=== PATIENT | female | born 1945 | race Caucasian/White ===

== ENCOUNTER 2017-01-06 12:32 | Observation (INO) | payer MEDICARE ==
[2017-01-06] MEDS ORDERED: Zofran 4 MG/2 ML VIAL IV ONE (12:38)
[2017-01-06] MEDS ORDERED: NITRO-BID 2% UD PACKETS TOP ONE (12:38)
[2017-01-06] MEDS ORDERED: BABY ASPIRIN 81 MG CHEW PO ONE (12:38)
[2017-01-06] MEDS ORDERED: Zofran 4 MG/2 ML VIAL ONE (12:39)
[2017-01-06] MEDS ORDERED: BABY ASPIRIN 81 MG CHEW ONE (12:40)
[2017-01-06] MEDS ORDERED: NITRO-BID 2% UD PACKETS ONE (12:40)
[2017-01-06] MEDS ORDERED: Sodium Chloride 0.9% 1000 ML 1,000 ML IV SCH (12:45)
--- NOTE | 2017-01-06 12:45 | ERPHSYRPT ---
- History of Present Illness Time Seen by Provider: 01/06/17 12:38 Historian: patient, family Exam Limitations: no limitations Physician History: chest discomfort and not feeling well fo r2-3 days; last night developed chest heaviness with N&V clear; diaphoresis and sob; pain 7/10; has persisted; no releif; no meds; no travel; no trauma; past hx of [place] years ago; no exposures; no fever Timing/Duration: yesterday (worse), day(s) (2-3 days onset), intermittent, worse Activities at Onset: activity Quality: fullness, pressure, tightness Location: substernal Chest Pain Radiation: no radiation Severity of Pain-Max: severe Severity of Pain-Current: severe Modifying Factors: Improves With: exertion (aggravates), rest (slight releif) Associated Symptoms: nausea, vomiting, shortness of breath, diaphoresis, weakness, swelling/lump in chest Prior Chest Pain/Cardiac Workup: cardiac cath, heart attack Nitro Today/Relief: no nitro taken today, provided by ED Aspirin Treatment Today: no aspirin today, provided by ED Allergies/Adverse Reactions: No Known Drug Allergies Allergy (Unverified 01/06/17 12:46) Home Medications: No Reportable Medications [No Reported Medications] 01/06/17 [History] - Review of Systems Constitutional: No Symptoms Eyes: No Symptoms Ears, Nose, & Throat: No Symptoms Respiratory: Dyspnea on Exertion (BREWER), No Cough, No Dyspnea, No Wheezing Cardiac: Chest Pain, No Edema, No Palpitations, No Syncope Abdominal/Gastrointestinal: Nausea, Vomiting, No Abdominal Pain, No Diarrhea Genitourinary Symptoms: No Symptoms Musculoskeletal: Arthralgias, Joint Pain (right hip old post op) Skin: No Symptoms Neurological: No Symptoms Psychological: No Symptoms Endocrine: No Symptoms Hematologic/Lymphatic: No Symptoms Immunological/Allergic: No Symptoms - Past Medical History Pertinent Past Medical History: Yes Cardiac History: Coronary Artery Disease, Myocardial Infarction ([place]) - Past Surgical History Past Surgical History: Yes Female Surgical History: Hysterectomy - Social History Smoking Status: Never smoker Exposure to second hand smoke: No Alcohol Use: None Drug Use: none Patient Lives Alone: No Significant Family History: no pertinent family hx - Female History Hx Now: No - Nursing Vital Signs Nursing Vital Signs: Initial Vital Signs O2 Sat by Pulse Oximetry 95 01/06/17 12:35 Pain Scale Pain Intensity 4 - Physical Exam General Appearance: severe distress (cp), alert, anxiety Eye Exam: PERRL/EOMI, eyes nml inspection, No photophobia Ears, Nose, Throat Exam: normal ENT inspection, TMs normal, pharynx normal, moist mucous membranes Neck Exam: normal inspection, non-tender, supple, full range of motion, No meningismus, No JVD Respiratory Exam: normal breath sounds, lungs clear, airway intact, No chest tenderness, No respiratory distress, No crackles/rales, No rhonchi, No wheezing Cardiovascular Exam: regular rate/rhythm, normal heart sounds, normal peripheral pulses, capillary refill 2-3 sec, No murmur, No edema Gastrointestinal/Abdomen Exam: soft, normal bowel sounds, No tenderness, No guarding, No pulsatile mass, No rebound, No organomegaly Pelvic Exam: deferred Rectal Exam: deferred Back Exam: normal inspection, normal range of motion, No CVA tenderness, No vertebral tenderness Extremity Exam: normal inspection, normal range of motion, No lakshmi's sign, No pedal edema Neurologic Exam: alert, oriented x 3, cooperative, safe technician II-XII nml as tested, normal mood/affect, nml cerebellar function, nml station & gait Skin Exam: normal color, warm, dry, No rash, No cyanosis SpO2 Interpretation: normal SpO2: 100 Oxygen Delivery: Room Air - Course Nursing assessment & vital signs reviewed: Yes EKG Interpreted by Me: RATE (62), Sinus Rhythm, Left [place] Deviation, NORMAL INTERVALS, NORMAL QRS, Non-specific ST Changes (flattenng of T ways diffuse with poor R wave progression V1- V3) Rhythm Strip: Rate (62), Normal Sinus Rhythm - Radiology Exams Chest X-ray Interpretation: Reviewed by me, Teleradiologist Report, Negative, No Pneumonia, No Pneumothorax, Nml Heart Size, Other (mild hyperaeration) Ordered Tests: Active Orders 24 hr Category Date Time Status Bedrest with BRP/BSC ROUTINE Activity 01/06/17 13:50 Ordered Admission/Status Order ROUTINE Care 01/06/17 13:50 Ordered Call Admit Doctor for Orders ROUTINE Care 01/06/17 13:50 Ordered Money Position Officer STAT Care 01/06/17 12:39 Active Code Status Order ROUTINE Care 01/06/17 13:50 Ordered EKG-ER Only STAT Care 01/06/17 12:38 Active Fall Protocol ROUTINE Care 01/06/17 13:51 Ordered IV Care Q6H Care 01/06/17 13:50 Ordered IV Insertion STAT Care 01/06/17 12:38 Active Implement Chest Pain Pathway ROUTINE Care 01/06/17 13:50 Ordered Pulse Oximetry (ED) STAT Care 01/06/17 12:38 Active Re-Check Vital Signs STAT Care 01/06/17 12:38 Active Norma Blount ROUTINE Care 01/06/17 13:50 Ordered Telemetry ROUTINE Care 01/06/17 13:50 Ordered Weight,Daily 0600 Care 01/06/17 13:50 Ordered Cardiac Diet Diet 01/06/17 Dinner Ordered CHEST 1 VIEW (PORTABLE) Stat Exams 01/06/17 12:39 Completed CBC W DIFF Stat Lab 01/06/17 12:51 Completed CMP Stat Lab 01/06/17 12:51 Completed LIPID PROFILE AM.LAB Lab 01/07/17 04:00 Ordered NT PRO BNP Stat Lab 01/06/17 12:51 Completed PROTIME WITH INR Stat Lab 01/06/17 12:51 Completed TROPONIN Q3H Lab 01/06/17 12:51 Completed TROPONIN Q3H Lab 01/06/17 15:45 Ordered TROPONIN Q3H Lab 01/06/17 18:45 Ordered TROPONIN Q3H Lab 01/06/17 21:45 Ordered TROPONIN Q3H Lab 01/07/17 00:45 Ordered EKG Q8HX2,QAMX3,PRN RT 01/06/17 13:50 Ordered Pulse Oximetry Q4H RT 01/06/17 13:50 Ordered Transfer Order Routine Transfer 01/06/17 Ordered Medication Summary Generic Name Dose Route Start Last Admin Trade Name Freq PRN Reason Stop Dose Admin Acetaminophen 650 mg 01/06/17 13:50 Tylenol 325 Mg PO 02/05/17 13:49 Q4H PRN PRN PAIN AND/OR FEVER Al Hydrox/Mg Hydrox/Simethicone 30 ml 01/06/17 13:50 Maalox Es 30 Ml Unit Dose PO 02/05/17 13:49 Q4H PRN PRN INDIGESTION Aspirin 325 mg 01/07/17 10:00 Ecotrin 325 Mg PO 02/06/17 09:59 DAILY MARIANNA Famotidine 20 mg 01/06/17 22:00 Pepcid 20 Mg PO 02/05/17 21:59 BID MARIANNA Sodium Chloride 1,000 mls @ 50 mls/hr 01/06/17 12:45 01/06/17 12:47 Sodium Chloride 0.9% 1000 Ml IV 02/05/17 12:44 50 mls/hr .Q20H MARIANNA Administration Lorazepam 1 mg 01/06/17 13:52 Ativan 1 Mg PO 02/05/17 13:51 Q6H PRN PRN ANXIETY Magnesium Hydroxide 30 - 60 ml 01/06/17 13:50 Milk Of Magnesia 30 Ml PO 02/05/17 13:49 QDP PRN CONSTIPATION Nitroglycerin 1 gm 01/06/17 14:00 Nitro-Bid 2% Ud Packets TOP 02/05/17 13:59 Q8HT MARIANNA Ondansetron HCl 4 mg 01/06/17 13:50 Zofran 4 Mg/2 Ml Vial IV 02/05/17 13:49 Q4H PRN PRN NAUSEA/VOMITING Senna/Docusate Sodium 2 udtab 01/06/17 13:50 Senokot-S Tablet PO 02/05/17 13:49 BID PRN PRN CONSTIPATION Discontinued Medications Generic Name Dose Route Start Last Admin Trade Name Freq PRN Reason Stop Dose Admin Aspirin 324 mg 01/06/17 12:38 01/06/17 12:42 Baby Aspirin 81 Mg Chew PO 01/06/17 12:39 324 mg STAT ONE Administration Aspirin Confirm 01/06/17 12:40 Baby Aspirin 81 Mg Chew Administered 01/06/17 12:41 Dose 324 mg .ROUTE .STK-MED ONE Nitroglycerin 1 gm 01/06/17 12:38 01/06/17 12:48 Nitro-Bid 2% Ud Packets TOP 01/06/17 12:39 1 gm STAT ONE Administration Nitroglycerin Confirm 01/06/17 12:40 Nitro-Bid 2% Ud Packets Administered 01/06/17 12:41 Dose 1 gm .ROUTE .STK-MED ONE Ondansetron HCl 4 mg 01/06/17 12:38 01/06/17 12:47 Zofran 4 Mg/2 Ml Vial IV 01/06/17 12:39 4 mg STAT ONE Administration Ondansetron HCl Confirm 01/06/17 12:39 Zofran 4 Mg/2 Ml Vial Administered 01/06/17 12:40 Dose 4 mg .ROUTE .STK-MED ONE Lab/Rad Data: Laboratory Result Diagrams 01/06/17 12:51 01/06/17 12:51 Laboratory Results 01/06/17 01/06/17 01/06/17 Range/Units 12:51 12:51 12:51 WBC (4.0-10.5) K/mm3 RBC (4.1-5.4) M/mm3 Hgb (12.0-16.0) gm/dl Hct (35-47) % MCV (78-100) fl MCH (26-32) pg MCHC (32-36) g/dl RDW (11.5-14.0) % Plt Count (150-450) K/mm3 MPV (6-9.5) fl Gran % (36.0-66.0) % Lymphocytes % (24.0-44.0) % Monocytes % (0.0-12.0) % Eosinophils % (0.00-5.0) % Basophils % (0.0-0.4) % Basophils # (0-0.4) INR 1.03 (0.8-3.0) Sodium 142 (136-145) mEq/L Potassium 3.4 L (3.5-5.1) mEq/L Chloride 104 (98-107) mEq/L Carbon Dioxide 28.1 (21-32) mEq/L Anion Gap 13.7 (5-15) MEQ/L BUN 10 (9-20) mg/dL Creatinine 0.83 (0.55-1.30) mg/dl Estimated GFR > 60 ML/MIN Glucose 113 H (70-110) MG/DL Calcium 9.3 (8.5-10.1) mg/dL Total Bilirubin 0.60 (0.2-1.0) mg/dL AST 18 (15-37) U/L ALT 13 (12-78) U/L Alkaline Phosphatase 68 (46-116) U/L Troponin I < 0.017 (0.000-0.056) ng/ml NT-Pro-B Natriuret Pep 275 H (0-125) pg/ml Serum Total Protein 7.9 (6.4-8.2) gm/dL Albumin 4.0 (3.4-5.0) g/dL 01/06/17 Range/Units 12:51 WBC 8.8 (4.0-10.5) K/mm3 RBC 4.43 (4.1-5.4) M/mm3 Hgb 13.9 (12.0-16.0) gm/dl Hct 41.6 (35-47) % MCV 93.9 (78-100) fl MCH 31.4 (26-32) pg MCHC 33.4 (32-36) g/dl RDW 13.1 (11.5-14.0) % Plt Count 255 (150-450) K/mm3 MPV 10.7 H (6-9.5) fl Gran % 73.2 H (36.0-66.0) % Lymphocytes % 16.4 L (24.0-44.0) % Monocytes % 9.7 (0.0-12.0) % Eosinophils % 0.5 (0.00-5.0) % Basophils % 0.2 (0.0-0.4) % Basophils # 0.02 (0-0.4) INR (0.8-3.0) Sodium (136-145) mEq/L Potassium (3.5-5.1) mEq/L Chloride (98-107) mEq/L Carbon Dioxide (21-32) mEq/L Anion Gap (5-15) MEQ/L BUN (9-20) mg/dL Creatinine (0.55-1.30) mg/dl Estimated GFR ML/MIN Glucose (70-110) MG/DL Calcium (8.5-10.1) mg/dL Total Bilirubin (0.2-1.0) mg/dL AST (15-37) U/L ALT (12-78) U/L Alkaline Phosphatase (46-116) U/L Troponin I (0.000-0.056) ng/ml NT-Pro-B Natriuret Pep (0-125) pg/ml Serum Total Protein (6.4-8.2) gm/dL Albumin (3.4-5.0) g/dL reviewed - Progress Progress: improved (after meds), re-examined (after meds) Air Movement: good Progress Note: 01/06/17 12:47 IV started, EKG done and ok -no STEMMI; will give meds, get cxr and labs and monitor and recheck; BP up; other VS and O2 sats good; at bedside 01/06/17 12:47 01/06/17 13:19 rechecked and pain resolved 0/10; no sob; anxiety gone; vs immproved; cxr ok, cbc ok; will monitor and recheck 01/06/17 13:31 BS; renal function and lytes ok excpet slightly low K+ = 3.4; will give some K+ ; pBNP slight up at 275; Troponin -0.[address] Silva for disposition and consultation; inr 1.03 01/06/17 13:48 Dr Silva consulted and will admit; patient and family informed and ok Blood Culture(s) Obtained: No Antibiotics given: No Discussed with : Ricardo (consulted and will admit) Will see patient in: hospital (observation) Counseled pt/family regarding: lab results, diagnosis, need for follow-up, rad results - Departure Time of Disposition: 13:49 Departure Disposition: Observation Clinical Impression: Chest pain at rest, Hypertension, Hypokalemia Condition: Serious Critical Care Time: No Referrals: EVERT KRISHNAMURTHY NP [Primary Care Provider] - GRACE SILVA MD [ACTIVE STAFF] - Instructions: Angina
[2017-01-06 12:50] LABS: BASOPHIL % 0.2 % (0.0-0.4); Eosinophil % 0.5 % (0.00-5.0); Granulocytes % 73.2 % (36.0-66.0); Lymphocytes % 16.4 % (24.0-44.0); Mean Cell Volume 93.9 fl (78-100); Mean Corpuscular Hemoglobin 31.4 pg (26-32); Mean Platelet Volume 10.7 fl (6-9.5); Monocytes % 9.7 % (0.0-12.0); Platelet Count 255 K/mm3 (150-450); Red Blood Count 4.43 M/mm3 (4.1-5.4); Red Cell Distribution Width 13.1 % (11.5-14.0); White Blood Count 8.8 K/mm3 (4.0-10.5)
--- NOTE | 2017-01-06 13:03 | XRAY ---
Indication: Chest pain. Comparison: None Portable chest hyperinflated and clear. Heart is not enlarged for AP portable technique. Vascular normal. Bony thorax intact with minimal degenerative changes. Impression: Nonacute hyperinflated chest.
[2017-01-06 13:13] LABS: INR 1.03 (0.8-3.0); PROTIME 11.5 SECONDS (9.95-12.35)
[2017-01-06 13:26] LABS: ALKALINE PHOSPHATASE 68 U/L (46-116); ANION GAP 13.7 MEQ/L (5-15); BLOOD UREA NITROGEN 10 mg/dL (9-20); CHLORIDE 104 mEq/L (98-107); Carbon Dioxide 28.1 mEq/L (21-32); Glucose 113 MG/DL (70-110); Potassium 3.4 mEq/L (3.5-5.1); SGOT/AST 18 U/L (15-37); SGPT/ALT 13 U/L (12-78); SODIUM 142 mEq/L (136-145); Total Protein 7.9 gm/dL (6.4-8.2)
[2017-01-06] MEDS ORDERED: Senokot-S Tablet PO PRN (13:50)
[2017-01-06] MEDS ORDERED: Zofran 4 MG/2 ML VIAL IV PRN (13:50)
[2017-01-06] MEDS ORDERED: TYLENOL 325 MG PO PRN (13:50)
[2017-01-06] MEDS ORDERED: MILK OF MAGNESIA 30 ML PO PRN (13:50)
[2017-01-06] MEDS ORDERED: MAALOX ES 30 ML UNIT DOSE PO PRN (13:50)
[2017-01-06] MEDS ORDERED: Ativan 1 MG PO PRN (13:52)
[2017-01-06] MEDS ORDERED: Ativan 1 MG PO ONE (13:53)
[2017-01-06] MEDS ORDERED: K-LYTE 25 MEQ PO ONE (13:53)
[2017-01-06] MEDS ORDERED: K-LYTE 25 MEQ ONE (13:57)
[2017-01-06] MEDS: NITRO-BID 2% UD PACKETS TOP SCH ×2 (15:37→21:05)
--- NOTE | 2017-01-06 16:27 | PCM.HP ---
History of Present Illness - Chief Complaint Chief Complaint: CHEST PAIN, ANGINA, HTN, HYPOKALEMIA History of Present Illness: is a 71 year old female who presented to the ER with chest pain today, she reports intermittent chest pressure for the last 2-3 days. She described the pain as tight and squeezing in nature, no dyspnea, no nausea/vomiting or diaphoresis. Pain was worse today so she came to ER, she reports a great deal of stress. 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 - Review of Systems Constitutional: No Fever, No Chills Respiratory: No Cough, No Short Of Breath Cardiac: Chest Pain Abdominal/Gastrointestinal: No Abdominal Pain, No Nausea, No Vomiting, No Diarrhea Skin: No Rash Neurological: No Dizziness, No Focal Weakness, No Sensory Changes All Other Systems: Reviewed and Negative Medications & Allergies Home Medications: Home Medication List Zolpidem Tartrate [Ambien] 5 mg PO HS PRN PRN 01/06/17 [History Confirmed ] Allergies/Adverse Reactions: Allergies Allergy/AdvReac Type Severity Reaction Status Date / Time No Known Drug Allergies Allergy Verified 01/06/17 15:19 - Past Medical History Past Medical History: Yes Neurological History: TIA ENT History: No Pertinent History Cardiac History: Coronary Artery Disease, Myocardial Infarction ([place]) Respiratory History: No Pertinent History Endocrine Medical History: No Pertinent History Musculoskelatal History: Arthritis GI Medical History: GERD History: No Pertinent History Pyscho-Social History: Anxiety Reproductive Disorders: No Pertinent History - Female History Are you now?: No - Past Surgical History Past Surgical History: Yes Neuro Surgical History: No Pertinent History Cardiac History: No Pertinent History Respiratory Surgery: No Pertinent History GI Surgical History: No Pertinent History Genitourinary Surgical Hx: No Pertinent History Musculskeletal Surgical Hx: Joint Replacement Female Surgical History: Hysterectomy Other Surgical History: RIGHT HIP - Social History Smoking Status: Never smoker Exposure to second hand smoke: No Alcohol: None Drug Use: none Significant Family History: no pertinent family hx - Physical Exam Vital Signs: Vital Signs - 24 hr Temp Pulse Pulse Resp BP Pulse Ox 01/06/17 14:37 98.0 F 68 16 145/68 97 01/06/17 13:56 96 01/06/17 13:55 73 18 177/77 96 01/06/17 13:54 100 01/06/17 13:28 72 20 159/74 96 01/06/17 12:58 94 L 01/06/17 12:54 72 18 152/70 95 01/06/17 12:51 71 20 152/70 01/06/17 12:41 98.7 F 70 75 18 196/80 95 01/06/17 12:35 95 General Appearance: no apparent distress, alert Neurologic Exam: alert, oriented x 3, cooperative, normal mood/affect, nml cerebellar function, nml station & gait, sensation nml, No motor deficits Eye Exam: PERRL/EOMI, eyes nml inspection Respiratory Exam: normal breath sounds, lungs clear, No respiratory distress Cardiovascular Exam: regular rate/rhythm, normal heart sounds, normal peripheral pulses Gastrointestinal/Abdomen Exam: soft, normal bowel sounds, No tenderness, No mass Extremity Exam: normal inspection, normal range of motion, pelvis stable Skin Exam: normal color, warm, dry, No rash Results - Other Procedures and Tests Respiratory Therapy 01/06/17 13:50 EKG Q8HX2,QAMX3,PRN 01/06/17 20:30 EKG ONCE 01/07/17 05:00 EKG ONCE 01/08/17 05:00 EKG ONCE 01/09/17 05:00 EKG ONCE Assessment/Plan (1) Chest pain Current Visit: Yes Status: Acute Assessment & Plan: plan to rule out ME, unlikely cardiac since pain has been present for the last 2 -3 days but certainly has risk factors. continue aspirin 325mg daily and check serial troponins, fasting lipids in the am Code(s): R07.9 - CHEST PAIN, UNSPECIFIED (2) Hypertension Current Visit: Yes Status: Acute Assessment & Plan: add toprol xl 25mg daily Code(s): I10 - ESSENTIAL (PRIMARY) HYPERTENSION (3) Hypokalemia Current Visit: Yes Status: Acute Assessment & Plan: replacement ordered, will monitor Code(s): E87.6 - HYPOKALEMIA
[2017-01-06] MEDS ORDERED: Ambien 5 MG Tablet PO PRN (17:00)
[2017-01-06] MEDS: Pepcid 20 MG PO SCH (21:04)
[2017-01-07] MEDS: NITRO-BID 2% UD PACKETS TOP SCH (05:41)
[2017-01-07 07:07] VITALS: BP 126/68; PULSE 74; O2SAT 97
--- NOTE | 2017-01-07 08:04 | PCM.DS ---
Discharge Summary Date of Admission: 01/06/17 14:10 Admitting Physician: GRACE RICO Primary Care Provider: EVERT KRISHNAMURTHY Allergies Allergies No Known Drug Allergies Allergy (Verified 01/06/17 15:19) Hospital Summary - Hospital Course Hospital Course: patient was admitted with substernal chest pain for 2-3 days, no known coronary disease. NE ruled out, she feels well today. - Vitals & Intake/Output Vital Signs: Vital Signs Temperature 97.7 F 01/07/17 07:06 Pulse Rate 74 01/07/17 07:06 Respiratory Rate 18 01/07/17 07:06 Blood Pressure 126/68 01/07/17 07:06 O2 Sat by Pulse Oximetry 97 01/07/17 07:06 Intake & Output: Intake & Output 01/04/17 01/05/17 01/06/17 01/07/17 11:59 11:59 11:59 11:59 Intake Total 1343 Output Total 200 Balance 1143 Weight 60.237 kg - Lab Result Diagrams: 01/06/17 12:51 01/06/17 12:51 Lab Results-Last 24 Hrs: Lab Results-Last 24 Hours 01/06/17 01/06/17 01/06/17 Range/Units 15:45 19:00 22:00 Troponin I < 0.017 < 0.017 < 0.017 (0.000-0.056) ng/ml Triglycerides (30-200) mg/dL Cholesterol (100-200) mg/dL LDL Cholesterol (5-99) mg/dL HDL Cholesterol (35-60) mg/dL Heart Disease Risk Ratio 01/07/17 01/07/17 Range/Units 01:15 04:58 Troponin I < 0.017 (0.000-0.056) ng/ml Triglycerides 138 (30-200) mg/dL Cholesterol 167 (100-200) mg/dL LDL Cholesterol 95 (5-99) mg/dL HDL Cholesterol 48 (35-60) mg/dL Heart Disease Risk Ratio 3.5 - Procedures and Test Procedures and Tests throughout Hospitalization: Therapy Orders & Screens 01/06/17 13:50 EKG Q8HX2,QAMX3,PRN Comment: 01/06/17 20:30 EKG ONCE Comment: 01/07/17 05:00 EKG ONCE Comment: 01/08/17 05:00 EKG ONCE Comment: 01/09/17 05:00 EKG ONCE Comment: Discharge Exam General Appearance: no apparent distress Skin Exam: normal color, warm, dry Respiratory Exam: normal breath sounds, lungs clear, No respiratory distress Cardiovascular Exam: regular rate/rhythm, normal heart sounds Gastrointestinal/Abdomen Exam: soft, No tenderness, No mass Extremity Exam: normal inspection, normal range of motion Final Diagnosis/Problem List - Final Discharge Diagnosis/Problem (1) Chest pain Current Visit: Yes Status: Acute (2) Hypertension Current Visit: Yes Status: Acute (3) Hypokalemia Current Visit: Yes Status: Acute - Discharge Disposition: Home, Self-Care Condition: Good Prescriptions: New Aspirin [Aspirin EC] 81 mg PO DAILY #30 tablet. Metoprolol Succinate 25 mg Xl* [Toprol-Xl 25MG Tablets] 25 mg PO DAILY # 30 tab Continue Zolpidem Tartrate [Ambien] 5 mg PO HS PRN PRN PRN Reason: SLEEP Instructions: Angina Additional Instructions: please schedule followup with Dr Bolivar Jordan to be seen in [place] for followup, f/u with Anya in 1 week. continue metoprolol and aspirin as prescribed. Follow up with: EVERT KRISHNAMURTHY NP [Primary Care Provider] - BOLIVAR JORDAN MD [CONSULTING PHYSICIAN] - 1 Week
[2017-01-07] MEDS: Pepcid 20 MG PO SCH (08:32)
[2017-01-07] MEDS ORDERED: Toprol-Xl 25MG Tablets PO SCH (10:00)
[2017-01-07] MEDS ORDERED: Ecotrin 325 MG PO SCH (10:00)
== END 2017-01-07 09:15 | disposition home or self-care (01) ==
LOC: ED 12:32 → MED SURG 14:10
PROVIDERS: ADMIT Family Medicine; ATTEND Family Medicine
DX: R07.9 Chest pain, unspecified (principal); I10 Essential (primary) hypertension; E87.6 Hypokalemia; Z86.73 Personal history of transient ischemic attack (TIA), and cerebral infarction without residual deficits
CPT/HCPCS: 36000; 36415; 71010; 80053; 80061; 83721; 83880; 84484; 85025; 85610; 93005; 93041; 93268; 94760; 96360; 96361; 96374; 99285; G0378; J2405; A9270-GY

== ENCOUNTER 2017-08-16 17:04 | Emergency (ER) | payer MEDICARE ==
--- NOTE | 2017-08-16 17:41 | ERPHSYRPT ---
- History of Present Illness Time Seen by Provider: 08/16/17 17:29 Source: other () Exam Limitations: clinical condition Patient Subjective Stated Complaint: pt brought to ed with reports from that pt was talking on phone grace 1 hr ago and "lost it"- states that he thinks it's more mental than anything-states that she had a mini stroke a month ago- very unclear of pt hx Triage Nursing Assessment: pt arrived to ed by wheelchair-repeating "i am ok"- rocking forward in wheelchair-not alert-not able to answer questions correctly- pupils reactive-right sided facial droop noted-pt able to move all extremities but not follow commands Physician History: Pt was on the phone at 16:30 PM, according to her she suddenly became agitated and confused. He denies fall, recent head trauma, vomiting, other complaints. Pt is alert, verbally responding, but confused. GCS; 14.She denies any pain, but does not understand questions well, keeps repeating the same words. Timing/Duration: hour(s) (1) Severity: severe Character of Deficits: other (acute confusion) Deficits: no difficulties Baseline/Normal Cognition: alert but confused Current Cognition: alert but confused Baseline Gait: walks w/o assistance Associated Symptoms: denies symptoms Allergies/Adverse Reactions: No Known Drug Allergies Allergy (Verified 08/16/17 17:34) Home Medications: Zolpidem Tartrate [Ambien] 5 mg PO HS PRN PRN 01/06/17 [History] Hx Tetanus, Diphtheria Vaccination/Date Given: Yes Hx Influenza Vaccination/Date Given: No Hx Pneumococcal Vaccination/Date Given: No Immunizations Up to Date: Yes - Review of Systems All Other Systems: Unable due to condition - Past Medical History Pertinent Past Medical History: Yes Neurological History: TIA ENT History: No Pertinent History Cardiac History: Coronary Artery Disease, Myocardial Infarction (ME) Respiratory History: No Pertinent History Endocrine Medical History: No Pertinent History Musculoskeletal History: Arthritis GI Medical History: GERD History: No Pertinent History Psycho-Social History: Anxiety Female Reproductive Disorders: No Pertinent History - Past Surgical History Past Surgical History: Yes Neuro Surgical History: No Pertinent History Cardiac: No Pertinent History Respiratory: No Pertinent History Gastrointestinal: No Pertinent History Genitourinary: No Pertinent History Musculoskeletal: Joint Replacement Female Surgical History: Hysterectomy Other Surgical History: RIGHT HIP - Social History Smoking Status: Never smoker Exposure to second hand smoke: No Alcohol Use: None Drug Use: none Patient Lives Alone: No Significant Family History: no pertinent family hx - Nursing Vital Signs Nursing Vital Signs: Initial Vital Signs Temperature 98.5 F 08/16/17 17:24 Pulse Rate 97 H 08/16/17 17:24 Respiratory Rate 18 08/16/17 17:24 Blood Pressure 181/130 08/16/17 17:24 O2 Sat by Pulse Oximetry 99 08/16/17 17:24 Pain Scale Pain Intensity 0 - Kareen Coma Scale Best Eye Response ([place]): (4) open spontaneously Best Verbal Response ([place]): (4) confused conversation Best Motor Response (Kareen): (6) obeys commands [place] Total: 14 - Physical Exam General Appearance: mild distress Eye Exam: bilateral eye: PERRL, EOMI Ears, Nose, Throat Exam: normal ENT inspection Neck Exam: normal inspection, non-tender, supple Respiratory: normal breath sounds, lungs clear, airway intact, No chest tenderness, No respiratory distress Cardiovascular: regular rate/rhythm, normal heart sounds, normal peripheral pulses, No murmur Gastrointestinal: soft, normal bowel sounds, No tenderness Back Exam: normal inspection Extremity Exam: normal inspection 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, 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 Exam: normal speech Motor/Sensory: no motor deficit Skin Exam: normal color, warm, dry, No rash SpO2 Interpretation: normal SpO2: 99 Oxygen Delivery: Room Air - Course Nursing assessment & vital signs reviewed: Yes EKG Interpreted by Me: RATE (99/min), NORMAL AXIS, NORMAL INTERVALS, Non- specific ST Changes - Radiology Exams Chest X-ray Interpretation: Interpreted by me, Negative - CT Exams Head CT Interpretation: Discussed w/radiologist, Other (4-5 cm left parietal intraparenchymal bleeding, 3-4 mm midline shift.) Ordered Tests: Active Orders 24 hr Category Date Time Status Procurement Intern STAT Care 08/16/17 17:31 Active Cath for Specimen-Straight STAT Care 08/16/17 17:31 Active EKG-ER Only STAT Care 08/16/17 17:31 Active IV Insertion STAT Care 08/16/17 17:31 Active Oxygen-ED Only NASAL CANNULA 2 lpm Care 08/16/17 17:31 Active CHEST 1 VIEW (PORTABLE) Stat Exams 08/16/17 17:31 Taken HEAD WITHOUT CONTRAST [CT] Stat Exams 08/16/17 17:22 Completed CBC W DIFF Stat Lab 08/16/17 18:02 Completed CMP Stat Lab 08/16/17 18:02 Completed Erythrocyte Sedimentation Rate Stat Lab 08/16/17 18:02 Completed PROTIME WITH INR Stat Lab 08/16/17 18:02 Completed PTT Stat Lab 08/16/17 18:02 Completed UA W/RFX UR CULTURE Stat Lab 08/16/17 Completed Medication Summary Discontinued Medications Generic Name Dose Route Start Last Admin Trade Name Valdo PRN Reason Stop Dose Admin Morphine Sulfate 2 mg 08/16/17 19:01 08/16/17 19:15 Morphine Sulfate 2 Mg Inj IV 08/16/17 19:02 2 mg STAT ONE Administration Morphine Sulfate Confirm 08/16/17 19:05 Morphine Sulfate 2 Mg Inj Administered 08/16/17 19:06 Dose 2 mg .ROUTE .STK-MED ONE Ondansetron HCl 4 mg 08/16/17 19:01 08/16/17 19:15 Zofran 4 Mg/2 Ml Vial IV 08/16/17 19:02 4 mg STAT ONE Administration Ondansetron HCl Confirm 08/16/17 19:06 Zofran 4 Mg/2 Ml Vial Administered 08/16/17 19:07 Dose 4 mg .ROUTE .STK-MED ONE Lab/Rad Data: Laboratory Result Diagrams 08/16/17 18:02 08/16/17 18:02 Laboratory Results 08/16/17 08/16/17 08/16/17 Range/Units Unknown 18:02 18:02 WBC (4.0-10.5) K/mm3 RBC (4.1-5.4) M/mm3 Hgb (12.0-16.0) gm/dl Hct (35-47) % MCV (78-100) fl MCH (26-32) pg MCHC (32-36) g/dl RDW (11.5-14.0) % Plt Count (150-450) K/mm3 MPV (6-9.5) fl Gran % (36.0-66.0) % Eos # (Auto) (0-0.5) Absolute Lymphs (auto) (1.0-4.6) Absolute Monos (auto) (0.0-1.3) Lymphocytes % (24.0-44.0) % Monocytes % (0.0-12.0) % Eosinophils % (0.00-5.0) % Basophils % (0.0-0.4) % Absolute Granulocytes (1.4-6.9) Basophils # (0-0.4) ESR 13 (0-20) mm/hr PT 11.4 (9.95-12.35) SECONDS INR 1.02 (0.8-3.0) APTT 28.9 (25.3-37.0) SECONDS Sodium (137-145) mmol/L Potassium (3.5-5.1) mmol/L Chloride (98-107) mmol/L Carbon Dioxide (22-30) mmol/L Anion Gap (5-15) MEQ/L BUN (7-17) mg/dL Creatinine (0.52-1.04) mg/dL Estimated GFR ML/MIN Glucose (74-106) mg/dL Calcium (8.4-10.2) mg/dL Total Bilirubin (0.2-1.3) mg/dL AST (14-36) U/L ALT (0-35) U/L Alkaline Phosphatase (38-126) U/L Serum Total Protein (6.3-8.2) g/dL Albumin (3.5-5.0) g/dL Ur Collection Type CCMS Urine Color YELLOW (YELLOW) Urine Appearance CLEAR (CLEAR) Urine pH 7.0 (5-6) Ur Specific [place] 1.010 (1.005-1.025) Urine Protein NEGATIVE (Negative) Urine Ketones NEGATIVE (NEGATIVE) Urine Blood NEGATIVE (0-5) Salvatore/ul Urine Nitrite NEGATIVE (NEGATIVE) Urine Bilirubin NEGATIVE (NEGATIVE) Urine Urobilinogen NORMAL (0-1) mg/dL Ur Leukocyte Esterase NEGATIVE (NEGATIVE) Urine Culture Reflexed NO (NO) Urine Glucose NEGATIVE (NEGATIVE) mg/dL Specimen Received 08-16-17 0244 08/16/17 08/16/17 Range/Units 18:02 18:02 WBC 7.8 (4.0-10.5) K/mm3 RBC 3.93 L (4.1-5.4) M/mm3 Hgb 12.5 (12.0-16.0) gm/dl Hct 37.3 (35-47) % MCV 94.9 (78-100) fl MCH 31.8 (26-32) pg MCHC 33.5 (32-36) g/dl RDW 12.5 (11.5-14.0) % Plt Count 256 (150-450) K/mm3 MPV 10.4 H (6-9.5) fl Gran % 61.3 (36.0-66.0) % Eos # (Auto) 0.03 (0-0.5) Absolute Lymphs (auto) 2.30 (1.0-4.6) Absolute Monos (auto) 0.64 (0.0-1.3) Lymphocytes % 29.7 (24.0-44.0) % Monocytes % 8.3 (0.0-12.0) % Eosinophils % 0.4 (0.00-5.0) % Basophils % 0.3 (0.0-0.4) % Absolute Granulocytes 4.76 (1.4-6.9) Basophils # 0.02 (0-0.4) ESR (0-20) mm/hr PT (9.95-12.35) SECONDS INR (0.8-3.0) APTT (25.3-37.0) SECONDS Sodium 142 (137-145) mmol/L Potassium 3.9 (3.5-5.1) mmol/L Chloride 103 (98-107) mmol/L Carbon Dioxide 28 (22-30) mmol/L Anion Gap 15.0 (5-15) MEQ/L BUN 14 (7-17) mg/dL Creatinine 0.75 (0.52-1.04) mg/dL Estimated GFR > 60.0 ML/MIN Glucose 104 (74-106) mg/dL Calcium 9.6 (8.4-10.2) mg/dL Total Bilirubin 0.50 (0.2-1.3) mg/dL AST 23 (14-36) U/L ALT 10 (0-35) U/L Alkaline Phosphatase 75 (38-126) U/L Serum Total Protein 7.4 (6.3-8.2) g/dL Albumin 4.2 (3.5-5.0) g/dL Ur Collection Type Urine Color (YELLOW) Urine Appearance (CLEAR) Urine pH (5-6) Ur Specific [place] (1.005-1.025) Urine Protein (Negative) Urine Ketones (NEGATIVE) Urine Blood (0-5) Salvatore/ul Urine Nitrite (NEGATIVE) Urine Bilirubin (NEGATIVE) Urine Urobilinogen (0-1) mg/dL Ur Leukocyte Esterase (NEGATIVE) Urine Culture Reflexed (NO) Urine Glucose (NEGATIVE) mg/dL Specimen Received - Progress Progress: unchanged Progress Note: 08/16/17 18:43 Called [facility] in [facility], discussed case with Dr Granados, trauma surgeon, and Dr Newberry Neurosurgeon, he recommended to contact [facility];lked to Dr Trinidad Neurosurgeon, discussed our findings and patient's current condition, he agreed to send patient to their ED. I informed patient's , he agreed, she has been stable, GCS 14, alert, still confused, not lethargic, talking in words, no sign of difficulty protecting her airways. - Departure Time of Disposition: 19:26 Departure Disposition: Transfer (to [facility] ED) Clinical Impression: Hemorrhagic stroke Condition: Fair Critical Care Time: Yes Critical Care Time(excluding separately billable procedures): 30-74 minutes Referrals: EVERT KRISHNAMURTHY, JAYDEN [Primary Care Provider] -
--- NOTE | 2017-08-16 17:48 | XRAY ---
Indication: Acute mental status change. Comparison: None Multiple contiguous axial images obtained through the head without contrast. Comparison: None In the posterior left parietal lobe, there is a 5.5 x 3.5 x 4.3 cm focus of acute parenchymal hemorrhage with mild mass effect on the adjacent trigone and minimal 2-3 mm midline shifting. Fourth ventricle is midline without hydrocephalus. Bony calvarium intact. Visualized paranasal sinuses and mastoid air cells are clear. Impression: Left parietal acute parenchymal hemorrhage with measurements above. Minimal mass effect/midline shifting. Comment: Telephone report was given to the ordering clinician, Dr Lamar at 1740 hrs. on August 16, 2017. CTDI 57.77
[2017-08-16 18:09] LABS: Appearance CLEAR (CLEAR); Bilirubin NEGATIVE (NEGATIVE); Blood NEGATIVE Ery/ul (0-5); Glucose NEGATIVE (NEGATIVE); Ketones NEGATIVE (NEGATIVE); Leukocyte Esterase NEGATIVE (NEGATIVE); Nitrite NEGATIVE (NEGATIVE); Protein,Urine Dip NEGATIVE (Negative); Urobilinogen NORMAL mg/dL (0-1)
[2017-08-16 18:10] LABS: BASOPHIL % 0.3 % (0.0-0.4); Basophil (Absolute #) 0.02 (0-0.4); Eosinophil % 0.4 % (0.00-5.0); Eosinophil (Absolute #) 0.03 (0-0.5); Granulocyte Absolute (ANC) 4.76 (1.4-6.9); Granulocytes % 61.3 % (36.0-66.0); Hematocrit 37.3 % (35-47); Hemoglobin 12.5 gm/dl (12.0-16.0); Lymphocytes % 29.7 % (24.0-44.0); Mean Cell Volume 94.9 fl (78-100); Mean Corpuscular Hemoglobin 31.8 pg (26-32); Mean Corpuscular Hgb Concent. 33.5 g/dl (32-36); Mean Platelet Volume 10.4 fl (6-9.5); Monocyte (Absolute #) 0.64 (0.0-1.3); Monocytes % 8.3 % (0.0-12.0); Platelet Count 256 K/mm3 (150-450); Red Blood Count 3.93 M/mm3 (4.1-5.4); Red Cell Distribution Width 12.5 % (11.5-14.0); White Blood Count 7.8 K/mm3 (4.0-10.5)
[2017-08-16 18:27] LABS: INR 1.02 (0.8-3.0)
[2017-08-16 18:29] LABS: ALBUMIN 4.2 g/dL (3.5-5.0); ALKALINE PHOSPHATASE 75 U/L (38-126); BLOOD UREA NITROGEN 14 mg/dL (7-17); CHLORIDE 103 mmol/L (98-107); Calcium 9.6 mg/dL (8.4-10.2); Carbon Dioxide 28 mmol/L (22-30); Creatinine 1 0.75 mg/dL (0.52-1.04); Glucose 104 mg/dL (74-106); Potassium 3.9 mmol/L (3.5-5.1); SGOT/AST 23 U/L (14-36); SGPT/ALT 10 U/L (0-35); SODIUM 142 mmol/L (137-145); Total Protein 7.4 g/dL (6.3-8.2)
[2017-08-16 18:30] LABS: PTT 28.9 SECONDS (25.3-37.0)
[2017-08-16 18:47] VITALS: O2SAT 99
[2017-08-16] MEDS ORDERED: Zofran 4 MG/2 ML VIAL IV ONE (19:01)
[2017-08-16] MEDS ORDERED: MORPHINE SULFATE 2 MG INJ IV ONE (19:01)
[2017-08-16] MEDS ORDERED: MORPHINE SULFATE 2 MG INJ ONE (19:05)
[2017-08-16] MEDS ORDERED: Zofran 4 MG/2 ML VIAL ONE (19:06)
[2017-08-16 19:13] VITALS: BP 134/73; PULSE 79
--- NOTE | 2017-08-17 09:01 | XRAY ---
Indication: Acute mental status change. Comparison: January 06, 2017. Portable apical lordotic chest remains hyperinflated and clear. Heart and mediastinal structures within normal limits. Bony thorax intact again with osteopenia and degenerative changes. Impression: Stable nonacute hyperinflated chest with chronic features.
== END 2017-08-16 19:42 | disposition short-term general hospital (02) ==
LOC: ED 17:04
DX: I62.9 Nontraumatic intracranial hemorrhage, unspecified (principal); Z86.73 Personal history of transient ischemic attack (TIA), and cerebral infarction without residual deficits
CPT/HCPCS: 36000; 36415; 70450; 71045; 80053; 81002; 85025; 85610; 85652; 85730; 93005; 93041; 96374; 96375; 99285; P9612; J2270; J2405

== ENCOUNTER 2017-10-06 16:32 | Emergency (ER) | payer MEDICARE ==
[2017-10-06] MEDS ORDERED: Sodium Chloride 0.9% 1000 ML 1,000 ML ONE (17:10)
--- NOTE | 2017-10-06 17:43 | ERPHSYRPT ---
- History of Present Illness Source: family, EMS Exam Limitations: clinical condition Patient Subjective Stated Complaint: pt brought to ed per ems from local [facility]- reports pt had fallen out of wheelchair-staff unsure if pt hit head-unsure of how fall had happened-senior living staff reported that pt was at her baseline- has previous hx of strokes with deficits Triage Nursing Assessment: pt arrives to ed pale warm and dry-able to communicate affectively-however pt does not have dentures in so it makes speach difficult-pt able to obey simple commands with noted weakness to right side-pt and report that to be normal for pt-resp easy and nonlabored-no bruising or swelling or obvious injury noted to head face or bady-pt denies pain Occurred: just prior to arrival Reason for Fall: unknown Injuries/Pain Location: no injury Loss of Consciousness: unsure Severity of Pain-Max: none Severity of Pain-Current: none Associated Symptoms (Fall): denies symptoms Hx Tetanus, Diphtheria Vaccination/Date Given: Yes Hx Influenza Vaccination/Date Given: No Hx Pneumococcal Vaccination/Date Given: No Immunizations Up to Date: Yes <IVY DIANE - Last Filed: 10/06/17 19:10> <ESHA PEREZ - Last Filed: 10/06/17 20:27> - History of Present Illness Time Seen by Provider: 10/06/17 16:58 Physician History: Pt was found next to her wheelchair in senior living, she apparently fell, nobody witnessed it. She does not recall her fall, according to her and son, she has been acting confused, since she fell. She is responding verbally, but she is slurred and confused, but not lethargic. She has residual right sided weakness, since she was diagnosed here in 07/2017 with hemorrhagic stroke , she was treated in . (IVY DIANE) Allergies/Adverse Reactions: No Known Drug Allergies Allergy (Verified 10/06/17 16:48) Home Medications: Levetiracetam 250 MG [Keppra 250 MG] 750 mg PO BID 10/06/17 [History] Quetiapine Fumarate 25 mg [Seroquel 25 MG] 25 mg PO BID 10/06/17 [History] - Review of Systems All Other Systems: Unable due to condition <ROXIIVY Filed: 10/06/17 19:10> - Past Medical History Pertinent Past Medical History: Yes Neurological History: TIA ENT History: No Pertinent History Cardiac History: Coronary Artery Disease, Myocardial Infarction ([place]) Respiratory History: No Pertinent History Endocrine Medical History: No Pertinent History Musculoskeletal History: Arthritis GI Medical History: GERD History: No Pertinent History Psycho-Social History: Anxiety Female Reproductive Disorders: No Pertinent History - Past Surgical History Past Surgical History: Yes Neuro Surgical History: No Pertinent History Cardiac: No Pertinent History Respiratory: No Pertinent History Gastrointestinal: No Pertinent History Genitourinary: No Pertinent History Musculoskeletal: Joint Replacement Female Surgical History: Hysterectomy Other Surgical History: RIGHT HIP - Social History Smoking Status: Never smoker Exposure to second hand smoke: No Alcohol Use: None Drug Use: none Patient Lives Alone: No Significant Family History: no pertinent family hx - Female History Hx Now: No <MARYAMNICIVY Filed: 10/06/17 19:10> - Kareen Coma Score Best Eye Response ([place]): (4) open spontaneously Best Verbal Response ([place]): (5) oriented Best Motor Response ([place]): (6) obeys commands [place] Total: 15 - Physical Exam General Appearance: no apparent distress Head Injury: no evidence of injury Eye Exam: PERRL/EOMI, eyes nml inspection ENT Exam: airway nml, No evidence of ENT injury Neck Exam: supple, trachea midline, normal alignment, normal inspection Respiratory/Chest Exam: normal breath sounds, No chest tenderness, No respiratory distress, No ecchymosis, No crepitus, No rales, No rhonchi, No wheezing Cardiovascular Exam: normal heart sounds, regular rate/rhythm, normal peripheral pulses, No murmur, No edema, No JVD Gastrointestinal Exam: soft, normal bowel sounds, No tenderness, No distention, No mass Back Exam: other (kyphotic), No CVA tenderness Extremity Exam: normal inspection, pelvis stable Peripheral Pulses: dorsalis-pedis (R): 3+, dorsalis-pedis (L): 3+ Neurologic Exam: alert, cooperative, normal mood/affect, motor deficits (right weakness, apparently old.) Skin Exam: normal color, warm, dry, No rash SpO2 Interpretation: normal SpO2: 98 Oxygen Delivery: Room Air <IVY DIANE - Last Filed: 10/06/17 19:10> - Nursing Vital Signs Nursing Vital Signs: Initial Vital Signs Temperature 98.2 F 10/06/17 16:39 Pulse Rate 93 H 10/06/17 16:39 Respiratory Rate 18 10/06/17 16:39 Blood Pressure 135/75 10/06/17 16:39 O2 Sat by Pulse Oximetry 98 10/06/17 16:39 Pain Scale Pain Intensity 0 - Course Nursing assessment & vital signs reviewed: Yes EKG Interpreted by Me: RATE (90/min), NORMAL AXIS, NORMAL INTERVALS, Non- specific ST Changes - Radiology Exams Chest X-ray Interpretation: Interpreted by me, Negative Pelvis X-ray Interpretation: Interpreted by me, Negative - CT Exams Head CT Interpretation: Tele-radiologist Report, Other (resolving left parietal bleeding) Cervical Spine CT Interpretation: Tele-radiologist Report, DJD, No Fracture Lumbar Spine CT Interpretation: Tele-radiologist Report, No Fracture <IVY DIANE - Last Filed: 10/06/17 19:10> Ordered Tests: Active Orders 24 hr Category Date Time Status Manager Sterile Processing STAT Care 10/06/17 17:06 Active Cath for Specimen-Straight STAT Care 10/06/17 17:06 Active EKG-ER Only STAT Care 10/06/17 17:05 Active NPO (ED) STAT Care 10/06/17 17:05 Active Oxygen-ED Only NASAL CANNULA 2 lpm Care 10/06/17 17:05 Active CERVICAL SPINE WO CONTRAST [CT] Stat Exams 10/06/17 17:07 Taken CHEST 1 VIEW (PORTABLE) Stat Exams 10/06/17 17:05 Taken HEAD WITHOUT CONTRAST [CT] Stat Exams 10/06/17 17:05 Taken LUMBAR SPINE W/O [CT] Stat Exams 10/06/17 17:07 Taken PELVIS (1 OR 2 VIEWS) Stat Exams 10/06/17 17:08 Taken CBC W DIFF Stat Lab 10/06/17 18:30 Completed CK-Creatinine Phosphokinase Stat Lab 10/06/17 18:30 Completed CMP Stat Lab 10/06/17 18:30 Completed PROTIME WITH INR Stat Lab 10/06/17 18:30 Completed PTT Stat Lab 10/06/17 18:30 Completed TROPONIN Q3H Lab 10/06/17 18:30 Completed TROPONIN Q3H Lab 10/06/17 20:15 Ordered TROPONIN Q3H Lab 10/06/17 23:15 Ordered TROPONIN Q3H Lab 10/07/17 02:15 Ordered TROPONIN Q3H Lab 10/07/17 05:15 Ordered UA W/RFX UR CULTURE Stat Lab 10/06/17 18:30 Completed Medication Summary Generic Name Dose Route Start Last Admin Trade Name Valdo PRN Reason Stop Dose Admin Sodium Chloride 1,000 mls @ 100 mls/hr 10/06/17 17:15 10/06/17 17:46 Sodium Chloride 0.9% 1000 Ml IV 11/05/17 17:14 100 mls/hr .Q10H MARIANNA Administration Lab/Rad Data: Laboratory Result Diagrams 10/06/17 18:30 10/06/17 18:30 Laboratory Results 10/06/17 10/06/17 10/06/17 Range/Units 18:30 18:30 18:30 WBC (4.0-10.5) K/mm3 RBC (4.1-5.4) M/mm3 Hgb (12.0-16.0) gm/dl Hct (35-47) % MCV (78-100) fl MCH (26-32) pg MCHC (32-36) g/dl RDW (11.5-14.0) % Plt Count (150-450) K/mm3 MPV (6-9.5) fl Gran % (36.0-66.0) % Eos # (Auto) (0-0.5) Absolute Lymphs (auto) (1.0-4.6) Absolute Monos (auto) (0.0-1.3) Lymphocytes % (24.0-44.0) % Monocytes % (0.0-12.0) % Eosinophils % (0.00-5.0) % Basophils % (0.0-0.4) % Absolute Granulocytes (1.4-6.9) Basophils # (0-0.4) PT (9.95-12.35) SECONDS INR (0.8-3.0) APTT (25.3-37.0) SECONDS Sodium (137-145) mmol/L Potassium (3.5-5.1) mmol/L Chloride (98-107) mmol/L Carbon Dioxide (22-30) mmol/L Anion Gap (5-15) MEQ/L BUN (7-17) mg/dL Creatinine (0.52-1.04) mg/dL Estimated GFR ML/MIN Glucose (74-106) mg/dL Calcium (8.4-10.2) mg/dL Total Bilirubin (0.2-1.3) mg/dL AST (14-36) U/L ALT (0-35) U/L Alkaline Phosphatase (38-126) U/L Creatine Kinase < 20 L (30-135) U/L Troponin I < 0.012 (0.000-0.034) ng/mL Serum Total Protein (6.3-8.2) g/dL Albumin (3.5-5.0) g/dL Ur Collection Type CCMS Urine Color YELLOW (YELLOW) Urine Appearance CLEAR (CLEAR) Urine pH 6.0 (5-6) Ur Specific [place] 1.010 (1.005-1.025) Urine Protein NEGATIVE (Negative) Urine Ketones NEGATIVE (NEGATIVE) Urine Blood NEGATIVE (0-5) Salvatore/ul Urine Nitrite NEGATIVE (NEGATIVE) Urine Bilirubin NEGATIVE (NEGATIVE) Urine Urobilinogen NORMAL (0-1) mg/dL Ur Leukocyte Esterase NEGATIVE (NEGATIVE) Urine Culture Reflexed NO (NO) Urine Glucose NEGATIVE (NEGATIVE) mg/dL Specimen Received 10-06-17195010/06/17 10/06/17 10/06/17 Range/Units 18:30 18:30 18:30 WBC 7.1 (4.0-10.5) K/mm3 RBC 3.94 L (4.1-5.4) M/mm3 Hgb 13.0 (12.0-16.0) gm/dl Hct 38.6 (35-47) % MCV 98.0 (78-100) fl MCH 32.9 H (26-32) pg MCHC 33.7 (32-36) g/dl RDW 13.3 (11.5-14.0) % Plt Count 387 (150-450) K/mm3 MPV 10.9 H (6-9.5) fl Gran % 61.4 (36.0-66.0) % Eos # (Auto) 0.07 (0-0.5) Absolute Lymphs (auto) 1.71 (1.0-4.6) Absolute Monos (auto) 0.93 (0.0-1.3) Lymphocytes % 24.1 (24.0-44.0) % Monocytes % 13.1 H (0.0-12.0) % Eosinophils % 1.0 (0.00-5.0) % Basophils % 0.4 (0.0-0.4) % Absolute Granulocytes 4.35 (1.4-6.9) Basophils # 0.03 (0-0.4) PT 11.3 (9.95-12.35) SECONDS INR 0.97 (0.8-3.0) APTT 30.8 (25.3-37.0) SECONDS Sodium 142 (137-145) mmol/L Potassium 3.7 (3.5-5.1) mmol/L Chloride 103 (98-107) mmol/L Carbon Dioxide 28 (22-30) mmol/L Anion Gap 14.5 (5-15) MEQ/L BUN 16 (7-17) mg/dL Creatinine 0.56 (0.52-1.04) mg/dL Estimated GFR > 60.0 ML/MIN Glucose 94 (74-106) mg/dL Calcium 9.7 (8.4-10.2) mg/dL Total Bilirubin 0.20 (0.2-1.3) mg/dL AST 29 (14-36) U/L ALT 28 (0-35) U/L Alkaline Phosphatase 72 (38-126) U/L Creatine Kinase (30-135) U/L Troponin I (0.000-0.034) ng/mL Serum Total Protein 6.7 (6.3-8.2) g/dL Albumin 3.8 (3.5-5.0) g/dL Ur Collection Type Urine Color (YELLOW) Urine Appearance (CLEAR) Urine pH (5-6) Ur Specific [place] (1.005-1.025) Urine Protein (Negative) Urine Ketones (NEGATIVE) Urine Blood (0-5) Salvatore/ul Urine Nitrite (NEGATIVE) Urine Bilirubin (NEGATIVE) Urine Urobilinogen (0-1) mg/dL Ur Leukocyte Esterase (NEGATIVE) Urine Culture Reflexed (NO) Urine Glucose (NEGATIVE) mg/dL Specimen Received <IVY DIANE - Last Filed: 10/06/17 19:10> - Progress Progress: improved <ESHA PEREZ - Last Filed: 10/06/17 20:27> - Progress Progress Note: 10/06/17 20:[address] scan head, cervical and lumbar spinedo not show any acute findings. The CXR and pelvic x ray also do not show any acute findings. The rest of the labs and the UA are also within normal limits. Since arriving to the ER, patient has been improving mentally. The patient will be sent back to [facility]. 10/06/17 20:26 (ESHA PEREZ) <IVY DIANE - Last Filed: 10/06/17 19:10> - Departure Time of Disposition: 20:25 Departure Disposition: Home Critical Care Time: No <ESHA PEREZ - Last Filed: 10/06/17 20:27> - Departure Clinical Impression: Altered mental status Qualifiers: Altered mental status type: unspecified Qualified Code(s): R41.82 - Altered mental status, unspecified Fall Qualifiers: Encounter type: initial encounter Qualified Code(s): W19.XXXA - Unspecified fall, initial encounter Condition: Stable Referrals: MALI MARTIN [Primary Care Provider] - Instructions: Preventing Falls, Altered Mental Status (DC) Additional Instructions: Return to the ER if you should fall, have chest pain, dizziness, shortness of breath or palpitations.
[2017-10-06] MEDS: Sodium Chloride 0.9% 1000 ML 1,000 ML IV SCH (17:46)
[2017-10-06 19:15] LABS: BASOPHIL % 0.4 % (0.0-0.4); Basophil (Absolute #) 0.03 (0-0.4); Eosinophil (Absolute #) 0.07 (0-0.5); Granulocyte Absolute (ANC) 4.35 (1.4-6.9); Granulocytes % 61.4 % (36.0-66.0); Hematocrit 38.6 % (35-47); Lymphocyte (Absolute #) 1.71 (1.0-4.6); Lymphocytes % 24.1 % (24.0-44.0); Mean Corpuscular Hgb Concent. 33.7 g/dl (32-36); Mean Platelet Volume 10.9 fl (6-9.5); Monocyte (Absolute #) 0.93 (0.0-1.3); Monocytes % 13.1 % (0.0-12.0); Platelet Count 387 K/mm3 (150-450); Red Blood Count 3.94 M/mm3 (4.1-5.4); Red Cell Distribution Width 13.3 % (11.5-14.0); White Blood Count 7.1 K/mm3 (4.0-10.5)
[2017-10-06 19:22] VITALS: O2SAT 97
[2017-10-06 19:29] LABS: Mean Corpuscular Hemoglobin 32.9 pg (26-32)
[2017-10-06 19:32] LABS: ALBUMIN 3.8 g/dL (3.5-5.0); ALKALINE PHOSPHATASE 72 U/L (38-126); ANION GAP 14.5 MEQ/L (5-15); BLOOD UREA NITROGEN 16 mg/dL (7-17); CHLORIDE 103 mmol/L (98-107); Calcium 9.7 mg/dL (8.4-10.2); Carbon Dioxide 28 mmol/L (22-30); Creatinine 1 0.56 mg/dL (0.52-1.04); Glucose 94 mg/dL (74-106); Potassium 3.7 mmol/L (3.5-5.1); SGOT/AST 29 U/L (14-36); SGPT/ALT 28 U/L (0-35); SODIUM 142 mmol/L (137-145); Total Protein 6.7 g/dL (6.3-8.2)
[2017-10-06 19:45] LABS: INR 0.97 (0.8-3.0)
[2017-10-06 19:48] LABS: PTT 30.8 SECONDS (25.3-37.0)
[2017-10-06 19:51] LABS: Appearance CLEAR (CLEAR); Bilirubin NEGATIVE (NEGATIVE); Blood NEGATIVE Ery/ul (0-5); Glucose NEGATIVE (NEGATIVE); Ketones NEGATIVE (NEGATIVE); Leukocyte Esterase NEGATIVE (NEGATIVE); Nitrite NEGATIVE (NEGATIVE); Protein,Urine Dip NEGATIVE (Negative); Urobilinogen NORMAL mg/dL (0-1)
[2017-10-06 20:18] VITALS: BP 129/76; PULSE 95
--- NOTE | 2017-10-07 08:33 | XRAY ---
Indication: Pain following fall. Multiple contiguous axial images obtained through the cervical spine. Sagittal and coronal reformatted images obtained. Comparison: None. Age-appropriate osteopenia. Axial images negative for acute fracture, suspicious bony lesions, or spinal canal stenosis. There is moderate C5-C7 degenerative endplate spurring with vacuum disc phenomena. Also further degenerative changes of the atlantoaxial articulation and multilevel bilateral degenerative facet hypertrophy. Sagittal and coronal reformatted images demonstrates straightening of the cervical lordosis, positional versus paraspinal spasm. C5-C7 disc space loss. No acute compression fracture, subluxation, or jumped facet. Normal-appearing craniocervical junction. Visualized noncontrasted soft tissues including base of the brain and lung apices unremarkable. Impression: 1. Negative acute fracture/subluxation. 2. Cervical lordotic straightening, positional versus paraspinal spasm. 3. Osteopenia and multilevel degenerative changes. CT DI 36.87
--- NOTE | 2017-10-07 08:34 | XRAY ---
Indication: Acute mental status change. Status post fall. Multiple contiguous axial images obtained through the head without contrast. Comparison: August 16, 2017. There has been interval maturation of the previous left parietal lobe parenchymal hemorrhage now appearing hypodense. No acute intracranial hemorrhage, abnormal extra-axial fluid collection, or mass effect. Fourth ventricle is midline without hydrocephalus. Bony calvarium intact. Visualized paranasal sinuses and mastoid air cells are clear. Impression: 1. Chronic appearing left parietal lobe parenchymal hemorrhage. 2. No new or acute intracranial abnormalities. CT DI 52.42
--- NOTE | 2017-10-07 08:37 | XRAY ---
Indication: Pain following fall. Multiple contiguous axial images obtained through the lumbar spine. Sagittal and coronal reformatted images obtained. Comparison: None. Age-appropriate osteopenia. Axial images negative for acute fracture, suspicious bony lesions, or spinal canal stenosis. There is moderate L2-L4 broad-based disc bulge with vacuum disc phenomena. Also further degenerative changes of both SI joints and L2-S1 bilateral degenerative facet hypertrophy. Sagittal and coronal reformatted images demonstrates normal lumbar alignment. L2-L4 disc space loss. No acute compression fracture or subluxation. Visualized noncontrasted soft tissues demonstrates mild scattered vascular calcifications. Impression: 1. Negative acute fracture/subluxation. 2. Osteopenia and multilevel degenerative changes. CT DI 51.42
--- NOTE | 2017-10-07 08:37 | XRAY ---
Indication: Acute mental status change. Status post fall. Comparison: August 16, 2017. Portable chest again demonstrates normal heart and lungs. Bony thorax intact again with mild osteopenia and degenerative changes. No new/acute findings.
--- NOTE | 2017-10-07 08:39 | XRAY ---
Indication: Pain following fall. Comparison: None AP pelvis demonstrates osteopenia, moderate lower lumbar degenerative spondylosis, and right total hip arthroplasty with intact bipolar prosthesis. No other bony, articular, or soft tissue abnormalities.
== END 2017-10-06 22:07 ==
LOC: ED 16:32
DX: R47.81 Slurred speech (principal); R41.82 Altered mental status, unspecified; I69.851 Hemiplegia and hemiparesis following other cerebrovascular disease affecting right dominant side; W05.0XXA Fall from non-moving wheelchair, initial encounter; Y92.129 Unspecified place in nursing home as the place of occurrence of the external cause; Z79.899 Other long term (current) drug therapy
CPT/HCPCS: 36415; 70450; 71045; 72125; 72131; 72170; 80053; 81002; 82550; 84484; 85025; 85610; 85730; 93005; 93041; 96360; 99284; P9612